=== PATIENT | male | born 1955 | race Caucasian/White ===

== ENCOUNTER → 2020-09-03 15:14 | Outpatient (BNVA) | payer OTHER, SELFPAY | PROVIDERS: Visit Provider Urology | DX: Z76.89 Persons encountering health services in other specified circumstances (principal) ==

== ENCOUNTER 2024-05-08 10:04 | Day surgery (SDC) | payer MEDICARE, SELFPAY ==
[2024-05-04 15:07] VITALS: BMI 27.6
--- NOTE | 2024-05-05 12:41 | HO.ANESPROP2 ---
Documented by User: Deysi Phan NP 05/05/24 12:41 HPI - Anesthesia Eval Consult details Narrative: 68yo M for Colonoscopy [facility] Active Problems Active Problems: All Active Problems Prostate cancer (Acute) Past Medical History Medical History (Updated 05/04/24 @ 15:05 by Catrina Mcmillan RN) Elevated cholesterol Nocturia Enlarged prostate Prostate cancer Elevated PSA Surgical History Surgical History (Updated 05/04/24 @ 15:09 by Catrina Mcmillan RN) H/O colonoscopy History of varicose vein ligation and stripping History of nasal surgery Social History Social History (Updated 05/04/24 @ 15:06 by Catrina Mcmillan RN) Household Members: Spouse Patient Tobacco Use Status: Never used Tobacco Use of substances other than those prescribed or required for medical reasons: No Are you DNR?: No Advance Directives: No Advance Directives Information Provided: Yes Recently lost weight without trying: No Nutrition Risks: No Nutritional Risk Meds Allergies Allergy/AdvReac Type Severity Reaction Status Date / Time No Known Allergies Allergy Verified 05/08/24 11:00 [No Known Allergies*] Home Medications ?Medication ?Instructions ?Recorded ?Confirmed ?Last Taken ?Type atorvastatin 10 mg tablet 10 mg PO DAILY 09/03/20 05/08/24 Unknown History cholecalciferol (vitamin D3) 125 125 mcg PO DAILY 05/04/24 05/08/24 Unknown History mcg (5,000 unit) tablet (Vitamin D3) magnesium oxide 300 mg PO DAILY 05/04/24 05/08/24 Unknown History Exam Height,Weight and Vital Signs: Height 5 ft 7 in Weight 79.832 kg Assessment and Plan Assessment Anesthesia Assessment: Chart Reviewed Documented by User: Dwain Wynne MD 05/08/24 12:40 PMFSH Past Medical History Medical History (Updated 05/04/24 @ 15:05 by Catrina Mcmillan RN) Elevated cholesterol Nocturia Enlarged prostate Prostate cancer Elevated PSA Family History Pertinent family history: f Family history of problems with anesthesia: No Surgical History Surgical History (Updated 05/04/24 @ 15:09 by Catrina Mcmillan RN) H/O colonoscopy History of varicose vein ligation and stripping History of nasal surgery History of Problems with Anesthesia: No Social History Social History (Updated 05/04/24 @ 15:06 by Catrina Mcmillan RN) Household Members: Spouse Patient Tobacco Use Status: Never used Tobacco Use of substances other than those prescribed or required for medical reasons: No Are you DNR?: No Advance Directives: No Advance Directives Information Provided: Yes Recently lost weight without trying: No Nutrition Risks: No Nutritional Risk Meds Allergies Allergy/AdvReac Type Severity Reaction Status Date / Time No Known Allergies Allergy Verified 05/08/24 11:00 [No Known Allergies*] Home Medications ?Medication ?Instructions ?Recorded ?Confirmed ?Last Taken ?Type atorvastatin 10 mg tablet 10 mg PO DAILY 09/03/20 05/08/24 Unknown History cholecalciferol (vitamin D3) 125 125 mcg PO DAILY 05/04/24 05/08/24 Unknown History mcg (5,000 unit) tablet (Vitamin D3) magnesium oxide 300 mg PO DAILY 05/04/24 05/08/24 Unknown History Exam Airway Mallampati Class: II TM Dist: <=3cm Neck ROM: Full Loose/Missing/Broken Teeth: No Heart: ok Lungs: ok Assessment and Plan Assessment Anesthesia Assessment: Anesthesia Plan Discussed Final Anesthetic Review Family History of Problems with Anesthesia: No History of Problems with Anesthesia: No NPO: Yes ASA Class: II Final Preanesthetic Review: No Changes in Pt Med Stat, Meds/Allgs Chart Reviewed, Consent Obtained/Reviewed and Anes Risks/Benef Reviewed Patient Risk: Low Procedure Risk: Low Anesthetic Plan Anesthetic Plan: MAC: and Agree w/ Assess. and Plan Disposition: Standard PACU
[2024-05-08 11:06] VITALS: BMI 25.8
[2024-05-08 11:07] VITALS: BP 137/93; PULSE 80; RESP 16; TEMP 36.6; O2SAT 96
[2024-05-08] MEDS: Lactated Ringers 1,000 ML 100 ML IVCONT (11:24)
[2024-05-08 13:16] VITALS: BP 104/64; PULSE 87; RESP 16; TEMP 36.1; O2SAT 94
--- NOTE | 2024-05-08 13:17 | P.BOP_ITS ---
Brief Operative Note Date of Service: 05/08/24 Pre-op diagnosis: Screening Post-op diagnosis: other (Diverticulosis) Procedure: Colonoscopy to the cecum Surgeon: Kurt Milner MD Anesthesia: MAC Was an Plastic Frame Inserter used for this Procedure?: No Estimated blood loss (mL): 0 Pathology: none sent Condition: stable Disposition: PACU
[2024-05-08 13:31] VITALS: BP 116/75; PULSE 73; RESP 16; O2SAT 98
[2024-05-08 13:45] VITALS: BP 128/79; PULSE 70; RESP 16; TEMP 36.3; O2SAT 98
--- NOTE | 2024-05-08 23:23 | OP_ITS ---
DATE OF SERVICE: 05/08/2024 SURGEON: Kurt Milner MD INDICATIONS: The patient presents for evaluation of personal history of tubular adenoma of the colon and need for colorectal cancer screening. Full consent obtained from him for this, including risks of bleeding and perforation. PREOPERATIVE DIAGNOSIS: POSTOPERATIVE DIAGNOSIS: PROCEDURE PERFORMED: Colonoscopy to cecum. ESTIMATED BLOOD LOSS: COMPLICATIONS: ANESTHESIA: Monitored anesthesia care. ASSISTANTS: SPECIMENS: PREOPERATIVE DIAGNOSES: Colorectal cancer screening and personal history of tubular adenoma of the colon. POSTOPERATIVE DIAGNOSES: Colorectal cancer screening and personal history of tubular adenoma of the colon, diverticulosis, and internal hemorrhoids. DESCRIPTION OF PROCEDURE: The patient was placed in the left lateral decubitus position. The digital rectal exam revealed no abnormalities. The Olympus videopediatric colonoscope was entered into the rectum and advanced easily to the cecum. Once in the cecum, I did identify normal-appearing cecal pouch with appendiceal orifice and a normal-appearing ileocecal valve. The entire cecum and ileocecal valve appeared normal. The scope was then slowly withdrawn assessing all mucosal surfaces carefully. Preparation was excellent. I did not visualize any sign of polyps, colitis, nor angiodysplasia. There was a mild amount of sigmoid diverticulosis. In the rectum, scope was retroflexed visualizing internal hemorrhoids, but no other pathology. The rectal mucosa appeared normal. The scope was straightened and withdrawn from the patient. He tolerated the procedure well and was returned to the recovery area in stable condition. IMPRESSION: 1. Diverticulosis. 2. Internal hemorrhoids. PLAN: Given his previous history of tubular adenoma, I would recommend a followup coloscopy in 5 years for further screening. He will otherwise see me on a p.r.n. basis. MD MARY ELLEN Jimenez/RAKESH / [id number]
== END 2024-05-08 14:21 | disposition home or self-care (01) ==
PROVIDERS: PCP Internal Medicine; Visit Provider Internal Medicine
PROC: 0DJD8ZZ Inspection of Lower Intestinal Tract, Via Natural or Artificial Opening Endoscopic (ICD-10-PCS; CPT 45378; principal; 2024-05-08 11:30)
DX: Z12.11 Encounter for screening for malignant neoplasm of colon (principal); Z86.010 Personal history of colon polyps; K57.30 Diverticulosis of large intestine without perforation or abscess without bleeding; K64.8 Other hemorrhoids; C61 Malignant neoplasm of prostate; E78.5 Hyperlipidemia, unspecified; Z79.899 Other long term (current) drug therapy
CPT/HCPCS: G0105; J2704

== ENCOUNTER 2024-05-23 13:08 | Outpatient (REF) | payer MEDICARE, SELFPAY ==
--- NOTE | ~2024-05-23 | XR_ITS ---
EXAMINATION: XR SHOULDER, LEFT CLINICAL INFORMATION: Shoulder pain COMPARISON: None available. TECHNIQUE: Three views of the left shoulder. FINDINGS: Mild degenerative changes in the acromioclavicular joint. Glenohumeral alignment is maintained. No abnormal soft tissue calcifications appreciated adjacent to the humeral head. XR/XR shoulder LT min 2V IMPRESSION: Mild degenerative changes in the acromioclavicular joint. Electronically signed by: Korina Harley MD 06/21/2024 04:38 AM EDT
== END 2024-05-23 13:09 | disposition home or self-care (01) ==
LOC: HO.HMGCX 13:08
PROVIDERS: PCP Internal Medicine; Visit Provider Internal Medicine
DX: M25.512 Pain in left shoulder (principal)
CPT/HCPCS: 73030

== ENCOUNTER 2025-03-06 09:16 | Outpatient (AMB) | payer MEDICARE, SELFPAY ==
--- NOTE | 2025-03-06 09:16 | A.OFFPC_ITS ---
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 Decorative Required: No Accompanied by: Self / Same As Patient Allergies No Known Allergies (No Known Allergies*) Allergy (Verified 03/06/25 09:50) Medication List - Last Reconciled 03/06/25 by Piyush Bhatt MD atorvastatin 10 mg PO DAILY cholecalciferol (vitamin D3) (Vitamin D3) 125 mcg PO DAILY magnesium oxide 300 mg PO DAILY turmeric root extract 1,000 mg PO DAILY Tobacco use date assessed: 03/06/25 Fall risk assessment: 1 Fall in past year (slipped on ice) Last assessed Fall Risk: 03/06/25 Dental Screening Dental Screen Date: 03/06/25 Did you have a dental visit in the last 12 months?: Yes Did you have a dental problem in the last 6 months where you did not have access to dental care?: No Was dental information given to patient?: Patient has dentist HPI Establish Care HPI Details 69-year-old male presents to the office to establish his care. 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 Patient has history of hyper cholesterolemia and prostate cancer. Prostate cancer was diagnosed more than 10 years ago. He has been followed by the local urology. At baseline state of health. [facility] Medical History Elevated cholesterol Nocturia Enlarged prostate Prostate cancer Elevated PSA Surgical History H/O colonoscopy (~05/08/24) History of varicose vein ligation and stripping History of nasal surgery Family History Father Heart attack Mother No problems noted. Social History Household Members: Spouse Housing: House Alcohol intake: current Alcohol intake frequency: a few times a week Alcohol type: wine Patient Tobacco Use Status: Never used Tobacco service: No Current occupational status: retired Cognitive needs: No Hearing needs: Yes (b/l hearing aids ) Vision needs: Yes (rx glasses) Questionnaire PHQ-9 Over the last 2 weeks, how often have you been bothered by any of the following problems? 1. Little interest or pleasure in doing things: not at all 2. Feeling down, depressed, or hopeless: not at all 3. Trouble falling or staying asleep, or sleeping too much: not at all 4. Feeling tired or having little energy: not at all 5. Poor appetite or overeating: not at all 6. Feeling bad about yourself - or that you are a failure or have let yourself or your family down: not at all 7. Trouble concentrating on things, such as reading the newspaper or watching television: not at all 8. Moving or speaking so slowly that other people could have noticed. Or the opposite - being so fidgety or restless that you have been moving around a lot more than usual: not at all 9. Thoughts that you would be better off or of hurting yourself in some way: not at all Total score: 0 Depression Screening Interpretation: Negative Depression Screening Done: Yes Source: Developed by Drs. Kurt Sadler, Shona Casey, Michael Duran and colleagues, with an educational vicki from [employer]. Thrive Questionnaire Date Thrive assessed: 03/06/25 I am a: Patient What is your living situation today?: I have a steady place to live Within the past 12 months, did the food you bought not last and you didn't have the money to get more?: Never true Within the past 12 months, did you worry whether your food would run out before you got money to buy more?: Never true Do you have trouble paying for medicines?: No Do you have trouble getting transportation to medical appointments?: No Do you have trouble paying your heating and electricity bill?: No Do you have trouble taking care of your child, family member or friend?: No Do you have trouble with day-to-day activities such as bathing, preparing meals, shopping, managing finances, etc.?: No Are you currently unemployed and looking for a job?: No Are you interested in more education?: No Please select the resources that you would like help with: None Currently or been in a relationship where the following occur: No concerns reported THRIVE Score: 0 AUDIT C Alcohol Use Questionnaire (AUDIT-C) 1. How often do you have a drink containing alcohol?: 2-3 times a week 2. How many drinks containing alcohol do you have on a typical day when you are drinking?: 1 or 2 3. How often do you have six or more drinks on one occasion?: Never Total Score: 3 JORGE LUIS-7 AMB Questionnaire JORGE LUIS-7 Date JORGE LUIS - 7 assessed: 03/06/25 Feeling nervous, anxious, or on edge: 0 = Not at all Not being able to stop or control worryin = Not at all Worrying too much about different things: 0 = Not at all Trouble relaxin = Not at all Being so restless that it is hard to sit still: 0 = Not at all Becoming easily annoyed or irritable: 0 = Not at all Feeling afraid as if something awful might happen: 0 = Not at all Total JORGE LUIS-7 score (0-4 normal; 5-9 mild; 10-14 moderate; 15-21 severe): 0 Source: Developed by Drs. Kurt Sadler, Shona Casey, Michael Duran and colleagues, with an educational vicki from [employer]. Physical exam (Primary Care) Vital Signs: Last Vital Signs Temp 98.2 F 03/06/25 09:18 Pulse 68 03/06/25 09:18 Resp 14 03/06/25 09:18 BP 136/81 03/06/25 09:18 Pulse Ox 96 03/06/25 09:18 Oxygen Delivery Method Room Air 03/06/25 09:18 Care Plan Goal for BP management: Blood pressure is in range. BMI result Body Mass Index 27.2 BMI Assessment/Plan discussion: Low Tobacco/Smoking Status: Tobacco use Status Tobacco use date assessed 03/06/25 03/06/25 09:18 Patient Tobacco Use Status Never used Tobacco 03/06/25 09:25 PHQ-9: PHQ-9 Score PHQ-9: Total score 0 03/06/25 09:18 Depression Screening Interpretation: Negative Thrive Assessment: Date of Thrive Assessment Date Thrive assessed 03/06/25 03/06/25 09:18 Currently or been in a relationship where the following occur: No concerns reported Const General: cooperative and healthy appearing Nutritional Appearance: well nourished Orientation/consciousness: patient oriented x3 Limitations: no limitations HENMT Head: Yes normal to inspection Eyes General: appearance normal, both eyes and all related structures Neck Neck: Yes normal visual inspection Chest Chest palpation & inspection: normal palpation of entire chest wall Resp Effort & Inspection: normal respiratory effort Neuro General: patient oriented x3 Coding Level of Care Code New Pt Level 4 (05099) Complex EM visit Add On G2211 Diagnoses Prostate cancer C61 Elevated cholesterol E78.00 Assessment & Plan Assessment & Plan (1) Prostate cancer: Code(s): C61 - Malignant neoplasm of prostate Category: Medical Plan: Recently had a debulking surgery. Patient's care is at [facility]. (2) Elevated cholesterol: Code(s): E78.00 - Pure hypercholesterolemia, unspecified Category: Medical Plan: Fasting blood work ordered. We will adjust the dosage of statins accordingly. Orders: Orders Lipid Panel Today C61 - Malignant neoplasm of prostate, E78.00 - Pure hypercholesterolemia, unspecified Thyroid Stimulating Hormone Today C61 - Malignant neoplasm of prostate, E78.00 - Pure hypercholesterolemia, unspecified UA and rflx microscopic Today C61 - Malignant neoplasm of prostate, E78.00 - Pure hypercholesterolemia, unspecified Basic Metabolic Panel Today C61 - Malignant neoplasm of prostate, E78.00 - Pure hypercholesterolemia, unspecified Complete Blood Count no Diff Today C61 - Malignant neoplasm of prostate, E78.00 - Pure hypercholesterolemia, unspecified Liver Panel Today C61 - Malignant neoplasm of prostate, E78.00 - Pure hypercholesterolemia, unspecified
[2025-03-06 09:18] VITALS: BP 136/81; PULSE 68; RESP 14; TEMP 36.8; O2SAT 96; BMI 27.2
--- OUTSIDE RECORDS SUMMARY | 2025-03-06 09:41 | XMS_ITS | Clinical Summary ---
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 Name Role Phone Physician, No Pcp Primary Care Provider Unavaila ble Social History Tobacco Use Types Packs/Day Years Used Date Smoking Tobacco: Never Assessed Sex and Gender Information Value Date Recorded Sex Assigned at Not on file Legal Sex Male 3:03 AM EST Gender Identity Not on file Sexual Orientation Not on file Plan of Treatment Health Maintenance Due Date Last Done Comments COVID-19 Vaccine (#1) 1962 DTaP,Tdap,and Td Vaccines (1 - Tdap) 1976 Pneumococcal Vaccine: 50+ Ye ars (1 of 2 - PCV) 1976 Zoster Vaccines (1 of 2) 1976 Abdominal Aortic Aneurysm (A AA) Screen 10/19/2024 Cholesterol Screening (Lipid Panel) 10/19/2024 Colorectal Cancer Screening: Colonoscopy 10/19/2024 Depression Screening 10/19/2024 Falls Risk Assessment 10/19/2024 Hepatitis C Screening 10/19/2024 Medicare Annual Wellness Visit 10/19/2024 Social Influencers of Health Screening 10/19/2024 Influenza Vaccine (#1) 2025 RSV Immunization Adult Patie nts (1 - 1-dose 75+ series) 2032 HIB Vaccines Aged Out No longer eligi ble based on patient's age to complete this topic HPV Vaccines Aged Out No longer eligi ble based on patient's age to complete this topic Hepatitis A Vaccines Aged Out No long er eligible based on patient's age to complete this topic Hepatitis B Vaccines Aged Out No long er eligible based on patient's age to complete this topic IPV Vaccines Aged Out No longer eligi ble based on patient's age to complete this topic MMR Vaccines Aged Out No longer eligi ble based on patient's age to complete this topic Meningococcal ACWY Vaccine Aged Out N o longer eligible based on patient's age to complete this topic Meningococcal B Vaccine Aged Out No l onger eligible based on patient's age to complete this topic RSV Immunization Patients Un debora 20 months Aged Out No longer eligible b ased on patient's age to complete this topic Varicella Vaccines Aged Out No longer eligible based on patient's age to complete this topic Insurance BLUE CROSS - [place] MEDICARE ADVANTAGE Care Teams Otr Van Cdl Truck Driver Relationship Specialty Start Date End Date Physician, No Pcp PCP - General 10/18/24
--- OUTSIDE RECORDS SUMMARY | 2025-03-06 09:41 | XMS_ITS | Patient Health Record ---
Author Organization [facility] Address [address] [place] [address] Care Team Providers Care Film Replacement Orderer Name Role Phone Beth (RETIRED) Peewee QUICK Primary Care Provider Unavailable Kurt Milner Unavailable [phone] Allergies No Known Allergies Reason For Referral No Information Medications Medication SIG (Take, Route, Frequency, Duration) Notes Start Date End Date Status Vitamin D 6000 1 tablet Orally Once a day Active Atorvastatin Calcium 10 MG 1 tablet Oral ly Once a day for 30 day(s) Active Magnesium 300 MG 1 capsule with a doron l Orally Once a day Active Vitamin C Active Cranberry Active Tamsulosin HCl 0.4 MG 1 capsule Orally O nce a day for 30 day(s) Active Turmeric Active Immunizations Vaccine Route Administration Date Status Comme nts Influenza Unknown 11/15/2018 Refused Social History Tobacco Use: Social History Observation Description Date Details (start date - stop date) Never Smoker NA - NA Tobacco Use/Smoking Question Answer Notes Patient is a nonsmoker Alcohol Screen Question Answer Notes Did you have a drink contain ing alcohol in the past year? Yes How often did you have a dri nk containing alcohol in the past year? 4 or more times a week (4 points) How many drinks did you have on a typical day when you were drinking in the past year? 1 or 2 drinks (0 point) How often did you have 6 or more drinks on one occasion in the past year? Never (0 point) Points 4 Interpretation Positive Section Notes: Nonsmoker; 2 glasses of wine QD Nonsmoker; 1 glass of wine Q D Problems Problem Type SNOMED Code ICD Code Onset Dates Problem Status W/U Status Risk Notes Problem [id number] Encounter for screening for malignant neoplasm of colon (Z12.11) Active confirmed Problem 371896001 History of adenomatous polyp of colon (Z86.010) Active confirmed Problem History of polyp of colon (situation) (898563206) Personal history of colonic polyps (Z86.010) Active confirmed Problem Pre-procedure evaluation check (221929273) Encounter for other preprocedural examination (Z01.818) Active confirmed Problem Diverticular disease of colon (182685047) Diverticulosis of large intestine without perforation or abscess without bleeding (K57.30) Active confirmed Problem 051052579625641 Preprocedural examination (Z01.818) Active confirmed Encounters Encounter Location Date Provider Diagnosis [facility] Out[place] [address] [place] [phone] 05/08/2024 Kurt Milner Colon cancer scree howie [...] hemorrhoids (ICD-10 - K64.8) Plan Of Treatment Future Test Test Name Order Date COLONOSCOPY 11/15/2018 COLONOSCOPY 11/02/2023 Insurance Providers Payer Name Payer Address Payer Phone Subscriber Number Group Number Insured Name Patient Relationship to Insured Coverage Start Date Coverage End Date [facility] [address] [place] [address] [id number] JOSELYN MARIE Self - patient is the insured Medical (General) History Medical History History ICD Code Followed by [facility] enlarged prostate and early prostate cancer --no surgery, no XRT Denies VT,DM,CVA,Lung disease,renal dise ase Hyperlipdemia Clonoscopy 06/2008-small tubular adenoma removed Colonoscopy 11/2018 with small tubular ad enomas Surgical History Surgery Date(Month/Year) Nasal surgery Vein surgeries on legs
== END 2025-03-06 09:55 | disposition home or self-care (01) ==
LOC: HO.HMCSH 09:16
PROVIDERS: PCP Internal Medicine; Visit Provider Internal Medicine
DX: C61 Malignant neoplasm of prostate (principal); E78.00 Pure hypercholesterolemia, unspecified

== ENCOUNTER → 2025-03-06 09:16 | Outpatient (BNVA) | payer MEDICARE, SELFPAY | PROVIDERS: PCP Internal Medicine; Visit Provider Internal Medicine | DX: E78.00 Pure hypercholesterolemia, unspecified (principal); Z85.46 Personal history of malignant neoplasm of prostate | CPT/HCPCS: 96127; 99202 ==

== ENCOUNTER 2025-03-14 07:57 | Outpatient (REF) | payer MEDICARE, SELFPAY ==
--- OUTSIDE RECORDS SUMMARY | 2025-03-14 08:02 | XMS_ITS | Clinical Summary ---
Author Organization [address] Address [address] [place] [address] Phone Care Team Providers Care System Manager Name Role Phone Physician, No Pcp Primary [...] 1976 Zoster Vaccines (1 of 2) 1976 Depression Screening 08/23/2024 Abdominal Aortic Aneurysm (A AA) Screen 10/19/2024 Cholesterol Screening (Lipid Panel) 10/19/2024 Colorectal Cancer Screening: Colonoscopy 10/19/2024 Falls Risk Assessment 10/19/2024 Hepatitis C [...] [place]OSS - [place] Care Teams System Manager Relationship Specialty Start Date End Date Physician, No Pcp PCP - General 10/18/24
--- OUTSIDE RECORDS SUMMARY | 2025-03-14 08:02 | XMS_ITS | Patient Health Record ---
Author Organization [facility] Address [address] [place] [address] Care Team Providers Care Account Coordinator Name Role Phone Beth (RETIRED) Peewee QUICK Primary Care Provider Unavailable Kurt Milner Unavailable [phone] Allergies No Known Allergies Reason For Referral [...] Problem Status W/U Status Risk Notes Problem 180359188 Encounter for screening for malignant neoplasm of colon (Z12.11) Active confirmed Problem 763457766 History of adenomatous polyp of colon (Z86.010) Active confirmed Problem History of polyp of colon (situation) (737264140) Personal history of colonic polyps (Z86.010) Active confirmed Problem Pre-procedure evaluation check (198877459) Encounter for other preprocedural examination (Z01.818) Active confirmed Problem Diverticulosis o f large intestine without perforation or abscess without bleeding (K57.30) Active confirmed Problem 843505906960593 Preprocedural examination (Z01.818) Active confirmed Encounters Encounter Location Date Provider Diagnosis [facility] Outpatient [address] [place] [address] [phone] 05/08/2024 Kurt Milner Colon cancer scree howie [...] Insured Coverage Start Date Coverage End Date [facility] [address] [place] [address] [phone] [id number] JOSELYN MARIE Self - patient is the insured Medical (General) History Medical History History ICD Code Followed by [facility] enlarged prostate and early prostate cancer --no surgery, no XRT Denies [place],DM,CVA,Lung disease,renal dise ase Hyperlipdemia Clonoscopy 06/2008-small tubular adenoma removed Colonoscopy 11/2018 with small tubular ad enomas Surgical History Surgery Date(Month/Year) Nasal surgery Vein surgeries on legs
[2025-03-14 10:14] LABS: Appearance Urine Clear; Glucose Urine UA Negative (Negative); PH 7.0 (5.0-9.0); Specific Gravity - Urine <= 1.005 (1.005-1.025)
[2025-03-14 10:18] LABS: Hematocrit 45.8 % (42.0-52.0); Hemoglobin 15.7 g/dl (14.0-18.0); Mean Corpuscular HGB Conc 34.3 g/dl (31.0-36.0); Mean Corpuscular Hemoglobin 32.0 pg (27.0-33.0); Mean Corpuscular Volume 93.3 fL (80.0-98.0); NRBC Abs Auto 0.000 X10*3/uL (0.0-0.012); NRBC Pct Auto 0.0 /100WBC (0.0-0.2); Platelet Count 238 X10*3/uL (160-400); Red Blood Count 4.91 X10*6/uL (4.60-5.80); White Blood Count 6.0 X10*3/uL (4.8-10.8)
[2025-03-14 11:10] LABS: Alanine Aminotransferase 36 U/L (0-40); Albumin Level 4.6 g/dL (3.5-5.0); Alkaline Phosphatase 65 U/L (39-117); Anion Gap 12 (12-20); Aspartate Amino Transferase 29 U/L (5-37); Blood Urea Nitrogen 12 mg/dL (9-16); Calcium 9.1 mg/dL (8.4-10.2); Carbon Dioxide 25 mmol/L (22-29); Chloride 108 mmol/L (96-108); Cholesterol 176 mg/dL (<200); Estimated Glomerular Filt Rate > 60; HDL Cholesterol 36 mg/dL (>40); Potassium 4.0 mmol/L (3.3-5.1); Sodium 141 mmol/L (135-145); Total Protein 6.6 g/dL (6.5-8.0); Triglycerides 211 mg/dL (<150)
[2025-03-14 11:13] LABS: Thyroid Stimulating Hormone 6.18 uIU/mL (0.32-4.0)
== END 2025-03-14 07:58 | disposition home or self-care (01) ==
LOC: HO.HMGCLDS 07:57
PROVIDERS: PCP Internal Medicine; Visit Provider Internal Medicine
DX: C61 Malignant neoplasm of prostate (principal); E78.00 Pure hypercholesterolemia, unspecified
CPT/HCPCS: 36415; 80048; 80061; 80076; 81003; 84443; 85027

== ENCOUNTER 2025-08-21 07:00 | Outpatient (REF) | payer MEDICARE, SELFPAY ==
--- OUTSIDE RECORDS SUMMARY | 2024-05-08 06:30 | XMS_ITS ---
Author Organization [facility] Address [address] [place] [address] Care Team Providers Care Barber Name Role Phone Beth (RETIRED) Peewee QUICK Primary Care Provider Unavailable Kurt Milner Unavailable [phone] REASON FOR VISIT colon polyp, screening Problems Problem Type SNOMED Code ICD Code Onset Dates Problem Status W/U Status Risk Notes Problem History of polyp of colon (situation) (405138636) Personal history of colonic polyps (Z86.010) Active confirmed Problem Diverticular disease of colon (647646684) Diverticulosis of large intestine without perforation or abscess without bleeding (K57.30) Active confirmed Encounters Encounter Location Date Provider Diagnosis [facility] Outpatient [address], [place] [id number] 05/08/2024 Kurt Milner Colon cancer scree howie Z12.11 ; Personal history of colonic polyps Z86.010 ; Diverticulosis of large intestine without perforation or abscess without bleeding K57.30 and Other hemorrhoids K64.8 Assessments Encounter Date Diagnosis (ICD Code) Assessment Notes Treatment Notes Treatment Clinical Notes Section Notes 05/08/2024 Colon cancer screening (ICD-10 - Z12.11) 05/08/2024 Personal history of colonic polyps (ICD-10 - Z86.010) 05/08/2024 Diverticulosis of large intestine without perforation or abscess without bleeding (ICD-10 - K57.30) 05/08/2024 Other hemorrhoids (ICD-10 - K64.8) Plan Of Treatment No Information Progress Notes * JOSELYN MARIEDOB: [birth year] (69 yo M)Acc No.[id number]:05/08/2024 COLON WITH MAC Patient: JOSELYN AMIN Provider: Guzman Milner MD :1955 A ge:68 Y S ex:Male Date:05/08/2024 Address:[address] [place] [address], [place] [id number] Pcp:Peewee Campos (RETIRED) MD Subjective: * Chief Complaints: * C olon polyp, screening Assessment: * Assessment: 1. C olon cancer screening - Z12.11 (Primary) 2 . P ersonal history of colonic polyps - Z86.010 3 . D iverticulosis of large intestine without perforation or abscess without bleeding - K57.30 4 . O ther hemorrhoids - K64.8 ? Plan: * Procedure Codes: G 0105 COLOREC CANCR SCR; COLNSCPY HI [id number] INTRVL 3+YRS PTS CLNSCP DOCD, Modifiers: 8P 0528F RCMND FLW-UP 10 YRS DOCD, Modifiers: 1P * Preventive Medicine: TYRONE Screening: C olonoscopy W as interval between colonoscopies three years or more? Y es, W as last colonoscopy performed three or more years ago? Y es. Billing Information: * Procedure Codes: G0105 COLOREC CANCR SCR; COLNSCPY HI RISK. 0529F INTRVL 3+YRS PTS CLNSCP DOCD. Modifiers: 8P 0528F RCMND FLW-UP 10 YRS DOCD. Modifiers: 1P * The named appointment provid er may or may not be the originator of this progress note, and it is not deemed complete until electronically signed by the appointment provider. Sign off status: Pending * Provider: Guzman Milner MD Date: 0 05/08/2024 Generated for Aracelis gunter/Remington/Nerysmitting on: 1 08:44 AM EST
--- OUTSIDE RECORDS SUMMARY | 2025-08-21 08:44 | XMS_ITS | Patient Health Record ---
Author Organization [facility] Address [address] [place] [address] Care Team Providers Care Architecture Department Chair Name Role Phone Beth (RETIRED) Peewee QUICK Primary Care Provider Unavailable Kurt Milner Unavailable [phone] Allergies No Known Allergies Reason For Referral No Information Medications Medication SIG (Take, Route, Frequency, Duration) Notes Start Date End Date Status Vitamin D 6000 units 1 tablet Orally Onc e a day Active Atorvastatin Calcium 10 MG Tablet 1 tablet Orally Once a day; Duration: 30 day(s) Active Magnesium 300 MG Capsule 1 capsule with a meal Orally Once a day Active Vitamin C Active Cranberry Active Tamsulosin HCl 0.4 MG Capsule 1 capsule Orally Once a day; Duration: 30 day(s) Active Turmeric Active Immunizations Vaccine Route Administration Date Status Comme nts Influenza Unknown 11/15/2018 Refused Social History Tobacco Use: Social History Observation Description Date Details (start date - stop date) Never Smoker NA - NA Social History Drugs/Alcohol: Social Info Question Answer Notes Alcohol Screen Did you have a drink containing alcohol in the past year? Yes How often did you have a drink containing alcohol in the past year? 4 or more times a week (4 points) How many drinks did you have on a typical day when you were drinking in the past year? 1 or 2 drinks (0 point) How often did you have 6 or more drinks on one occasion in the past year? 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 Section Notes: Nonsmoker; 2 glasses of wine QD Nonsmoker; 1 glass of wine Q D Problems Problem Type SNOMED Code ICD Code Onset Dates Problem Status W/U Status Risk Notes Problem Screening for malignant neoplasm of colon (334471956) Encounter for screening for malignant neoplasm of colon (Z12.11) Active confirmed Problem History of adenomatous polyp of colon (288060885) History of adenomatous polyp of colon (Z86.010) Active confirmed Problem History of polyp of colon (situation) (522046773) Personal history of colonic polyps (Z86.010) Active confirmed Problem Pre-procedure evaluation check (373853918) Encounter for other preprocedural examination (Z01.818) Active confirmed Problem Diverticular disease of colon (066890448) Diverticulosis of large intestine without perforation or abscess without bleeding (K57.30) Active confirmed Problem Preprocedural examination (477539081064441) Preprocedural examination (Z01.818) Active confirmed Plan Of Treatment Future Test Test Name Order Date COLONOSCOPY 11/15/2018 COLONOSCOPY 11/02/2023 Insurance Providers Payer Name Payer Address Payer Phone Subscriber Number Group Number Insured Name Patient Relationship to Insured Coverage Start Date Coverage End Date [facility] [address] [place] [address] [phone] [id number] JOSELYN MARIE Self - patient is the insured Medical (General) History Medical History History ICD Code Followed by [facility] enlarged prostate and early prostate cancer --no surgery, no XRT Denies [place],DM,CVA,Lung disease,renal dise ase Hyperlipdemia Clonoscopy 06/2008-small tubular adenoma removed Colonoscopy 11/2018 with small tubular ad enomas Surgical History Surgery Date(Month/Year) Nasal surgery Vein surgeries on legs
--- OUTSIDE RECORDS SUMMARY | 2025-08-21 08:44 | XMS_ITS | Clinical Summary ---
Author Organization [facility] Address [address] [place] [address] Care Team Providers Care Imcu Specialist Name Role Phone Beth Peewee Gonzalez Primary Care Provider [phone] Allergies No known active allergies Medications tamsulosin (FLOMAX) 0.4 mg Cp24 24 hr capsule TAKE ONE CAPSULE BY MOUTH EVERY DAY 6 11/06/2016 Active atorvaSTATin (LIPITOR) 10 MG tablet 11/17/2016 Active Active Problems No known active problems Social History Tobacco Use Types Packs/Day Years Used Date Smoking Tobacco: Never Alcohol Use Standard Drinks/Week Comments Not Asked 0 (1 standard drink = 0.6 oz pur e alcohol) Sex and Gender Information Value Date Recorded Sex Assigned at Not on file Legal Sex Male 11:46 AM EST Gender Identity Not on file Sexual Orientation Not on file Last Filed Vital Signs Vital Sign Reading Time Taken Comments Blood Pressure 130/70 11/19/2016 1:07 PM EDT Pulse - - Temperature - - Respiratory Rate - - Oxygen Saturation - - Inhaled Oxygen Concentration - - Weight - - Height - - Body Mass Index - - Plan of Treatment Not on file Insurance [employer] Care Teams Imcu Specialist Relationship Specialty Start Date End Date Peewee Campos [address] [place] [phone] PCP - General 10/14/16
--- OUTSIDE RECORDS SUMMARY | 2025-08-21 08:44 | XMS_ITS | Clinical Summary ---
Author Organization [address] Address [address] [place] [address] Phone Care Team Providers Care Director Dermatology Name Role Phone Physician, No Pcp Primary Care Provider Unavaila ble Social History Tobacco Use Types Packs/Day Years Used Date Smoking Tobacco: Never Assessed Sex and Gender Information Value Date Recorded Sex Assigned at Not on file Legal Sex Male 3:03 AM EST Gender Identity Not on file Sexual Orientation Not on file Plan of Treatment Health Maintenance Due Date Last Done Comments Colorectal Cancer Screening: Colonoscopy 1957 DTaP,Tdap,and Td Vaccines (1 - Tdap) 1976 Pneumococcal Vaccine: 50+ Ye ars (1 of 1 - PCV) 2007 Zoster Vaccines (1 of 2) 2007 Depression Screening 08/23/2024 Abdominal Aortic Aneurysm (A AA) Screen 10/19/2024 Cholesterol Screening (Lipid Panel) 10/19/2024 Falls Risk Assessment 10/19/2024 Hepatitis C Screening 10/19/2024 Medicare Annual Wellness Visit 10/19/2024 Social Influencers of Health Screening 10/19/2024 COVID-19 Vaccine (1 - 2024-2 6 season) 2025 Influenza Vaccine (#1) 2025 RSV Immunization Adult [...] [place] - [place] Care Teams Director Dermatology Relationship Specialty Start Date End Date Physician, No Pcp PCP - General 10/18/24
--- OUTSIDE RECORDS SUMMARY | 2025-08-21 08:45 | XMS_ITS | Encounter Summary ---
Author Organization [facility] Address [address] [place] [address] Care Team Providers Care House Superintendent Name Role Phone Physician, No Pcp Primary Care Provider Unavaila ble Encounter Details Date Type Department Care Team (Late st Contact Info) Description 10/18/2024 Lab Requisition [facility] Main Lab [address] [address] [place] [address] Neal Holt MD [address] [place] [address] Malignant neoplasm of prostate (CMS/HCC V24, CMS/HCC V28) Social History Tobacco Use Types Packs/Day Years Used Date Smoking Tobacco: Never Assessed Sex and Gender Information Value Date Recorded Sex Assigned at Not on file Legal Sex Male 3:03 AM EST Gender Identity Not on file Sexual Orientation Not on file documented as of this encounter Plan of Treatment Not on file documented as of this encounter Procedures Procedure Name Priority Date/Time Associated Diagnosis Comments AP OUTSIDE CONSULT Routine 10/17/2024 Malignant neoplasm of prostate (CMS/HCC) documented in this encounter Results * Anatomic pathology outside consult (10/17/2024) Final Diagnosis A. Prostate, Left [place] Biopsy: - Benign prostatic tissue. B. Prostate, Left Lateral [place] Biopsy: - Benign prostatic tissue. C. Prostate, Left Middle [place] Biopsy: - Benign prostatic tissue. D. Prostate, Left Lateral Middle Biopsy: - Benign prostatic tissue. E. Prostate, Left Middle [place] Biopsy: - Benign prostatic tissue. F. Prostate, Left Lateral Base Biopsy: - Benign prostatic tissue. G. Prostate, Right [place] Biopsy: - Benign prostatic tissue. H. Prostate, Right Lateral [place] Biopsy: - Benign stroma and benign prostatic tissue. I. Prostate, Right Middle [place] Biopsy: - Atypical small acinar proliferation (JUSTICE). Note: PIN4 stain was examined and supports the above diagnosis. J. Prostate, Right Lateral Middle Biopsy: - Prostatic acinar adenocarcinoma (conventional type), grade group 1 ([place] score 3+3=6). - Tumor continuously involves 30% of 1 of 1 tissue core. Note: PIN4 stain was examined and supports the above diagnosis. K. Prostate, Right Middle Base Biopsy: - Benign prostatic tissue. L. Prostate, Right Lateral [place] Biopsy: - Benign prostatic tissue. 5 2:14 PM EST [facility] at 1414 EST Clinical Information Elevated PSA = 10.0 (09/27/24) C61 [id number] 5 2:14 PM EST [facility] Gross Description A. Prostate, Left [place] Biopsy: Received, properly labeled, are two H and E stained slides and two unstained slides. B. Prostate, Left Lateral [place] Biopsy: Received, properly labeled, are two H and E stained slides and two unstained slides. C. Prostate, Left Middle [place] Biopsy: Received, properly labeled, are two H and E stained slides and two unstained slides. D. Prostate, Left Lateral Middle Biopsy: Received, properly labeled, are two H and E stained slides and two unstained slides. E. Prostate, Left Middle [place] Biopsy: Received, properly labeled, are two H and E stained slides and two unstained slides. F. Prostate, Left Lateral Base Biopsy: Received, properly labeled, are two H and E stained slides and two unstained slides. G. Prostate, Right [place] Biopsy: Received, properly labeled, are two H and E stained slides and two unstained slides. H. Prostate, Right Lateral [place] Biopsy: Received, properly labeled, are two H and E stained slides and two unstained slides. I. Prostate, Right Middle [place] Biopsy: Received, properly labeled, are two H and E stained slides and two unstained slides. J. Prostate, Right Lateral [place] Biopsy: Received, properly labeled, are two H and E stained slides and two unstained slides. K. Prostate, Right Middle [place] Biopsy: Received, properly labeled, are two H and E stained slides and two unstained slides. L. Prostate, Right Lateral Base Biopsy: Received, properly labeled, are two H and E stained slides and two unstained slides. /al 2:14 PM EST [facility] Disclaimer NOTE: The immunohistochemical tests and in situ hybridization tests were developed and their performance characteristics were determined by [facility]. They have not been cleared or approved by the U.S. Food and Drug Administration. The FDA has determined that such clearance or approval is not necessary. These tests are used for clinical purposes. They should not be regarded as investigational or for research. This laboratory is certified under the Clinical Laboratory Improvement Amendments of 1988 (CLIA) as qualified to perform high complexity clinical laboratory testing. (controls appropriate) Unless otherwise specified, all tissue is 10% NB formalin fixed and paraffin embedded. Technical pathology services provided by [facility] at [address] [place] [address] [address], [place] [address] (CLIA #[id number]/Ester Lima MD, Health Education Assistant) 2:14 PM EST [facility] Tissue Prostate / Unknown 10/17/20242024 3:44 PM EST Tissue specimen (specimen) Prostate / Unknown 10/17/2024 10/18/2024 3: 44 PM EST Tissue specimen (specimen) Prostate / Unknown 10/17/2024 10/18/2024 3: 44 PM EST Tissue specimen (specimen) Prostate / Unknown 10/17/2024 10/18/2024 3: 44 PM EST Tissue specimen (specimen) Prostate / Unknown 10/17/2024 10/18/2024 3: 44 PM EST Tissue specimen (specimen) Prostate / Unknown 10/17/2024 10/18/2024 3: 44 PM EST Tissue specimen (specimen) Prostate / Unknown 10/17/2024 10/18/2024 3: 44 PM EST Tissue specimen (specimen) Prostate / Unknown 10/17/2024 10/18/2024 3: 44 PM EST Tissue specimen (specimen) Prostate / Unknown 10/17/2024 10/18/2024 3: 44 PM EST Tissue specimen (specimen) Prostate / Unknown 10/17/2024 10/18/2024 3: 44 PM EST Tissue specimen (specimen) Prostate / Unknown 10/17/2024 10/18/2024 3: 44 PM EST Tissue specimen (specimen) Prostate / Unknown 10/17/2024 10/18/2024 3: 44 PM EST us Neal Holt MD LAB PATHOLOGY ORDERABLES Fi nal Result [facility] [address] [place] [address], documented in this encounter Visit Diagnoses Diagnosis Malignant neoplasm of prostate (CMS/HCC V24, CMS/HCC V28) Malignant neoplasm of prostate documented in this encounter Care Teams House Superintendent Relationship Specialty Start Date End Date Physician, No Pcp PCP - General 10/18/24 documented as of this encounter
[2025-08-21 11:25] LABS: Thyroid Stimulating Hormone 4.64 uIU/mL (0.32-4.0)
== END 2025-08-21 07:01 ==
LOC: HO.HMGCLDS 07:00
PROVIDERS: PCP Internal Medicine; Visit Provider Internal Medicine
DX: E03.9 Hypothyroidism, unspecified (principal)
CPT/HCPCS: 36415; 84443